=== PATIENT | female | born 1980 | race Caucasian/White ===

== ENCOUNTER 2016-12-20 03:01 | Inpatient (IN) | payer OTHER ==
--- NOTE | ~2016-12-20 | HP ---
Unit #: [id number] #: [id number] Patient: JERI CURTIS [id number] [place] [address] [id number] I MR#: [id number] NAME: JERI CURTIS. ROOM: 86 Age: 35 Sex: F Admission Date: 12/20/2016 : 1980 Attending Physician: Alli Islas M.D. Admitting Physician: Alli Islas M.D. Primary Care Physician: Primary Care Physician No HISTORY AND PHYSICAL HISTORY OF PRESENT ILLNESS Jeri is a 35 year old, admitted to [facility] because of her continued drug use. She shoots heroin. PAST MEDICAL HISTORY Long history of opioid abuse to include IV heroin. PAST SURGICAL HISTORY Bilateral thumbs. ALLERGIES No known drug allergies. SOCIAL HISTORY She smokes one pack per day, denies alcohol, admits to long history of opioid abuse to include IV heroin. FAMILY HISTORY Medically noncontributory. REVIEW OF SYSTEMS CONSTITUTIONAL: No fever or chills. HEENT: Denies any sore throat, ear pain or runny nose. CARDIOVASCULAR: Denies chest pain, irregular heart rhythm or palpitations. CHEST: Denies shortness of breath or cough. No hemoptysis. GASTROINTESTINAL: Denies nausea, vomiting, diarrhea or chronic constipation. ENDOCRINE: Denies history of increased thirst or urination. No recent significant weight loss or gain. GENITOURINARY: Denies dysuria, frequency, or hematuria. SKIN: Denies any rashes. HEMATOLOGIC: Denies history of increased bleeding or bruising. MUSCULOSKELETAL: Denies any hot, swollen joints. No generalized muscle pain. NEUROLOGIC: Denies problems with vision or speech. No frequent, severe headaches. No numbness, tingling or weakness in any extremities. Denies loss of bladder or bowel control. CURRENT MEDICATIONS 1. Detox protocol 2. Desyrel 50 mg q.h.s. p.r.n. PHYSICAL EXAMINATION Unit #: [id number] #: [id number] Patient: JERI CURTIS GENERAL: Alert, well-nourished, no apparent distress. VITAL SIGNS: Blood pressure 100/60, heart rate 80, respirations 16, temperature 98.6. WEIGHT: 119 pounds. HEIGHT: 5 feet 5 inches. SKIN: Warm and dry without rash or lesion. HEENT: Normocephalic. TMs not viewed. Oral and nasal passages clear. Conjunctivae clear. PERRLA. EOMs intact. NECK: Supple without lymphadenopathy or thyromegaly. HEART: Regular rate and rhythm without murmur. LUNGS: Clear. ABDOMEN: Soft, nontender. : Not done. EXTREMITIES: No evidence of cyanosis, clubbing or edema. Moves all without focal deficit. NEUROLOGICAL: Grossly within normal limits. Cranial Nerves: II: Visual miller are intact. III, IV AND : Extraocular movements are intact. Pupils are equal, round and reactive to light. V: Facial sensation is grossly normal. VII: Facial movements and expression are normal. VIII: Auditory acuity grossly intact. IX, X: Uvula is midline. Phonation is normal. XI: Patient shrugs shoulders and turns head normally. XII: Tongue protrudes in the midline. Sensory and Motor Function: Sensory and motor sensation is grossly normal. Motor: moves all extremities well. Coordination: Gait is normal. Deep Tendon Reflexes: Intact. IMPRESSION Psychiatric admission. RECOMMENDATIONS Psychiatric, per psychiatrist. MEDICAL I see no contraindications to participating in facility's activities. MEDICAL PROGNOSIS Good. MEDICAL CONDITION Stable. Dictated by... Andreina Skaggs, PYesicaAYesica-Yenny. for Blanca Rees/farrah TD: 12/21/2016 12:12 JOB #: [id number] Unit #: [id number] #: [id number] Patient: JERI CURTIS HISTORY AND PHYSICAL Page 1 of 1 X Andreina Skaggs HISTORY AND PHYSICAL
--- NOTE | ~2016-12-20 | DS ---
Unit #: [id number] #: [id number] Patient: JERI CURTIS [id number] [place] [address] [id number] I MR#: [id number] NAME: JERI CURTIS. ROOM: [facility] Age: 36 Sex: F Admission Date: 12/20/2016 : 1980 Discharge Date: 12/22/2016 Attending Physician: Alli Islas M.D. Primary Care Physician: Primary Care Physician No DISCHARGE SUMMARY REASON FOR ADMISSION Jeri is 34-year-old woman with a history of opioid dependence, who reported that she relapsed and had also been using amphetamines. She was unable to contract for safety with no specific suicidal ideation, intent, or plan and was admitted for detox. DIAGNOSTIC STUDIES LABORATORY RESULTS: Please see hospital chart. HOSPITAL COURSE The patient was admitted and placed on the opioid detox protocol. Trazodone was provided for insomnia. Her physical examination was unremarkable. After a brief period of inpatient detox, she requested discharge to go to a facility in [place] that her family had arranged for her. She continued to be free of suicidality and was discharged to the community. DISCHARGE DIAGNOSES AXIS I: Opioid dependence with withdrawal, uncomplicated; amphetamine abuse. AXIS II: No diagnosis. AXIS III: Opioid withdrawal, resolved. AXIS IV: AXIS V: DISCHARGE INSTRUCTIONS Follow up with chemical dependence programing in [place] as arranged by the patient's family. DISCHARGE MEDICATIONS None. CONDITION AT DISCHARGE Fair. PROGNOSIS Fair. DIET AND ACTIVITY Ad meggan. Unit #: [id number] #: [id number] Patient: JERI CURTIS Dictated by... Blanca Quesada/luis manuel TD: 03/02/2017 14:21 JOB #: [id number] DISCHARGE SUMMARY Page 1 of 1 X Alli Islas MD X DISCHARGE SUMMARY
--- NOTE | ~2016-12-20 | A ---
[facility] DATE: 12/21/16 Patient: JERI CURTIS Physician: SABRINA Address: [address] [place] Room/Bed: [address], Zip: [place] [address] Admit Date: 12/20/16 Date of : [birth year] Height: 5 5 Weight: [phone] NUTRITIONAL ASSESSMENT: REASON: NUTRITION RISK POINT- UNINTENTIONAL WEIGHT LOSS PATIENT ADMITTED FOR HEROIN AND METH DETOX PMH: LONG HX OPIOID ABUSE Anthropometrics: HT: 5'5", WT: 119#, BMI: 19.8, %IBW: 95 Labs: 12/20/16- NUTRITION LABS WNL Meds: DESYREL, DETOX PROTOCOL Assessment: PATIENT IS A 35 Y/O FEMALE ADMITTED FOR HEROIN AND METH DETOX. PATIENT IS CURRENTLY UNEMPLOYED, LIVES WITH HER , SMOKES 1 PPD, AND HAS DAILY HEROIN AND METH USE. PATIENT HAS A HX OF INPATIENT CHEMICAL DEPENDENCY TREATMENT. PATIENT STATED A GOOD APPETITE WITH A 20# WEIGHT LOSS OVER LAST SEVERAL MONTHS, AND SHE HAS NOT BEEN SLEEPING. WEIGHT HX PER MEDITECH SHOWS A 6# LOSS SINCE LAST ADMIT 1 YEAR AGO. PATIENT'S BMI IS WITHIN A HEALTHY RANGE AND SHE IS 95% OF HER IBW. THERE ARE NO SKIN OR GI ISSUES NOTED ATT. PATIENT IS ON A REGULAR DIET. THIS RD SUSPECTS WEIGHT AND APPETITE WILL STABILIZE AND POSSBILY INCREASE FOLLOWING DETOX. Dx: INADEQUATE NUTRIENT INTAKE R/T CURRENT CONDITION, DETOX AEB SELF-REPORTED WEIGHT LOSS, NUTRITION RISK POINT Intervention: REGULAR DIET, MEDS PER MD, DETOX, PSYCH Monitoring, Evaluation and Goals: 1. ADEQUATE PO INTAKES >50% OF MEALS 2. PREVENT, CORRECT MICRO/MACRO NUTRIENT DEFICIENCIES 3. MAINTAIN CURRENT WEIGHT, PREVENT FUTHER WEIGHT LOSS MONITOR: WEIGHTS, LABS, PO/FLUID INTAKES Recommendations: 1. CONTINUE REGULAR DIET TOLERATED 2. ENCOURAGE ADEQUATE PO AND FLUID INTAKES 3. OBTAIN WEIGHTS ROUTINELY (EVEYR 3-4 DAYS) 4. IF PO INTAKES FALL BELOW 50% OF MEALS PLEASE ORDER ENSURE BID TO PROMOTE ADEQUATE KCAL AND PROTEIN INTAKES [facility] DATE: 12/21/16 Patient: JERI CURTIS Physician: SABRINA Address: [address] [place] Room/Bed: [address], Zip: [place] [phone] Admit Date: 12/20/16 Date of : [birth year] Height: 5 5 Weight: [address] TO F/U PER PROTOCOL AND PRN R/T PATIENT MILDLY COMPROMISED Respectfully, MARYANA OLIVAS RD, LD Food and Nutritional Services [facility] cc: client file
--- NOTE | ~2016-12-20 | PA ---
Unit #: [id number] #: [id number] Patient: JERI CUTRIS [id number] [facility] [address] [place] [address] [id number] I MR#: [id number] NAME: JERI CURTIS. ROOM: 86 Age: 36 Sex: F Admission Date: 12/20/2016 : 1980 Date of Assessment: Attending Physician: Alli Islas M.D. Admitting Physician: Alli Islas M.D. Primary Care Physician: Primary Care Physician No PSYCHIATRIC ASSESSMENT INFORMANTS The patient, reliable; [facility], reliable. CHIEF COMPLAINT Jeri is 34-year-old woman with a history of IV heroin use, who reports that she has relapsed and been using again. She had vague suicidal ideation and could not contract for safety. She was admitted for stabilization. PAST PSYCHIATRIC HISTORY This is Jeri's second admission to our facility and she has had treatment in the [facility] as well as at the [facility]. FAMILY PSYCHIATRIC HISTORY There is a long family history of chemical dependence, depression, and anxiety. SOCIAL HISTORY The patient reports she has a history of violence within interpersonal relationships. She is a heterosexual woman, who is currently without a partner. She is living with a friend and a previous relationship. PAST MEDICAL HISTORY No chronic medical problems. MEDICATIONS None. ALLERGIES No known medication allergies. SUBSTANCE USE HISTORY The patient has abused opiates, methamphetamines, cannabis, alcohol, and hallucinogens in the past. MENTAL STATUS EXAMINATION Jeri presented mildly disheveled woman, who appeared at her stated age. Her speech was spontaneous and easily understood. Musculoskeletal examination was calm. Her mood was anxious and irritable with a congruent affect. She was alert and fully oriented. Memory and concentration were fair to good. Thought processes were goal directed with no active psychosis. She denied suicidal ideation, intent, or plan. She denied homicidal ideation. Insight and judgment were fair. Fund of knowledge Unit #: [id number] #: [id number] Patient: JERI CURTIS and abstraction were intact. ASSETS AND LIABILITIES The patient presents voluntarily for treatment and has supportive family. Liabilities include unstable housing and income. ADMITTING DIAGNOSES AXIS I: Opiate dependence with withdrawal, uncomplicated; amphetamine abuse. AXIS II: No diagnosis. AXIS III: Opioid withdrawal syndrome. AXIS IV: AXIS V: PSYCHIATRIC PLAN The patient was admitted and placed on the opioid detox protocol. Trazodone will be provided for insomnia. She will enroll in dual diagnosis groups and activities. TREATMENT GOALS Resolution of intoxication, improvement in insight, and improvement in coping skills. DISCHARGE PLANNING Follow up with chemical dependence programing of the patient's choice. ESTIMATED LENGTH OF STAY 5 days. Dictated by... Blanca QuesadaH/luis manuel TD: 03/02/2017 14:33 JOB #: [id number] PSYCHIATRIC ASSESSMENT Page 1 of 1 X Alli Islas MD X PSYCHIATRIC ASSESSMENT
[2016-12-20 09:42] LABS: BASOPHIL% 0.3 % (0-2.5); EOSINOPHIL# 0.1 X10e3 (0-0.7); EOSINOPHIL% 1.1 % (0.0-7.0); HEMATOCRIT 40.2 % (35.0-45.0); HEMOGLOBIN 13.3 gm/dL (12.0-16.0); LYMPHOCYTE# 2.5 X10e3 (1.0-3.5); LYMPHOCYTE% 21.5 % (17.0-45.0); MEAN CELL VOLUME 87.1 FL (83-96); MEAN CORPUSCULAR HEMOGLOBIN 28.7 PG (28-34); MEAN CORPUSCULAR HGB CONC 32.9 g/dL (30-36); MEAN PLATELET VOLUME 9.3 FL (6.5-11.5); MONOCYTE# 0.9 X10e3 (0-1.0); MONOCYTE% 7.4 % (3.0-12.0); NEUTROPHIL% 69.7 % (40-75); PLATELET COUNT 280 X10e3 (140-420); RED BLOOD COUNT 4.62 X10e (3.90-5.30); RED CELL DISTRIBUTION WIDTH 12.1 % (11.0-15.5); WHITE BLOOD COUNT 11.5 X10e3 (4.0-10.5)
[2016-12-20 09:45] LABS: DIFF IND NO
[2016-12-20 09:54] LABS: ALBUMIN SERUM 3.8 g/dL (3.5-5.0); BILIRUBIN,TOTAL 0.3 mg/dL (0.2-2.0); BUN/CREATININE RATIO 16.66; CALCIUM SERUM 9.3 mg/dL (8.4-10.2); CREATININE SERUM 0.6 mg/dL (0.6-1.4); GLOM FILT RATE Estimated 118.9 mL/min (>60); POTASSIUM 4.3 mmol/L (3.5-5.1); PROTEIN TOTAL SERUM 7.2 g/dL (6.0-8.3)
== END 2016-12-22 13:10 | disposition home or self-care (01) | DRG 897 ==
LOC: P1E 03:01
PROVIDERS: Psychiatry & Neurology Psychiatry
PROC: HZ2ZZZZ Detoxification Services for Substance Abuse Treatment (ICD-10-PCS; principal; 2016-12-20)
DX: F11.23 Opioid dependence with withdrawal (principal); F15.10 Other stimulant abuse, uncomplicated; F17.210 Nicotine dependence, cigarettes, uncomplicated
CPT/HCPCS: 80053; 84703; 85025; 86592

== ENCOUNTER 2017-04-19 17:00 | Inpatient (IN) | payer OTHER ==
[~2017-04-19] VITALS: Ht 165.1 cm; Wt 64.0 kg
--- NOTE | ~2017-04-19 | DS ---
Unit #: [id number] #: [id number] Patient: JERI CURTIS [id number] [place] [address] [id number] I MR#: [id number] NAME: JERI CURTIS. ROOM: [facility] Age: 36 Sex: F Admission Date: 04/19/2017 : 1980 Discharge Date: 04/21/2017 Attending Physician: Alli Islas M.D. Primary Care Physician: Primary Care Physician No DISCHARGE SUMMARY REASON FOR ADMISSION Jeri is a 36-year-old woman who came in reporting a relapse on opiates with ongoing detox symptomatology. She says that her boyfriend recently of an overdose and this caused her relapse about 2 months ago. She was admitted for opiate detox. DIAGNOSTIC STUDIES LABORATORY DATA: Beta HCG was negative. Other laboratory studies were within normal limits. HOSPITAL COURSE Patient was admitted and placed on the opiate detox protocol. Physical examination was unremarkable. She tolerated detox with no significant problems and was able to contract for safety once again on the date of discharge, having had no further suicidal ideation, intent or plan throughout the hospitalization. She also admitted the use of methamphetamines but not for about a month prior to admission. DISCHARGE DIAGNOSES AXIS I: Opiate dependence. Amphetamine abuse. AXIS II: No diagnosis. AXIS III: None acute. INSTRUCTION TO PATIENT Follow up with the [facility] intensive outpatient program. She was also referred to vocational rehab for job training and career assistance. DISCHARGE MEDICATIONS None. CONDITION ON DISCHARGE Improved. PROGNOSIS Fair to good. DIET AND ACTIVITY Per primary care doctor. Dictated by... Unit #: [id number] #: [id number] Patient: JERI CURTIS Alli Islas M.D. [facility]/pauh TD: 04/26/2017 17:19 JOB #: [id number] DISCHARGE SUMMARY Page 1 of 1 X Alli Islas MD X DISCHARGE SUMMARY
--- NOTE | ~2017-04-19 | PA ---
Unit #: [id number] #: [id number] Patient: JERI AGUAYO [id number] [facility] [address] [place] [address] [id number] I MR#: [id number] NAME: JERI AGUAYO. ROOM: [facility] Age: 36 Sex: F Admission Date: 04/19/2017 : 1980 Date of Assessment: 04/20/2017 Attending Physician: Alli Islas M.D. Admitting Physician: Alli Islas M.D. Primary Care Physician: Primary Care Physician No PSYCHIATRIC ASSESSMENT DATE OF SERVICE 04/20/2017. INFORMANTS The patient reliable; [facility] records, reliable. CHIEF COMPLAINT Relapse. HISTORY OF PRESENT ILLNESS Ms. Aguayo is a 36-year-old woman who reported that her boyfriend of a heroin overdose about 2 months ago. This caused her to become desponded and she herself relapsed on opiates and has been using consistently since then with the occasional use of methamphetamines. She was admitted for stabilization. PAST PSYCHIATRIC HISTORY This is her third admission to this facility and she has been treated in the [facility] as well as at the [facility] locally. FAMILY PSYCHIATRIC HISTORY There is a long family history of chemical dependence, depression, and anxiety. SOCIAL HISTORY The patient reports that she has a history of violence within interpersonal relationships. Her partner recently of an overdose and she is currently living with a friend. PAST MEDICAL HISTORY No chronic medical problems. MEDICATIONS None currently. ALLERGIES No known medication allergies. SUBSTANCE USE HISTORY As noted, the patient has been using opioids with occasional amphetamines. She also has a history of abusing alcohol, cannabis, and hallucinogens. MENTAL STATUS EXAMINATION Unit #: [id number] #: [id number] Patient: JERI AGUAYO presented as a mildly disheveled woman who appeared her stated age. She was cooperative with the examination. Her speech was spontaneous and easily understood. Her musculoskeletal examination was calm. Her mood was mildly anxious with a congruent affect. She was alert and fully oriented. Her memory and concentration were fair to good. Her thought processes were goal directed with no active psychosis. She denied suicidal ideation, intent, or plan. Insight and judgment, fair. Fund of knowledge and abstraction, fair. ASSETS AND LIABILITIES Assets; the patient knows local resources and presents voluntarily for treatment. Liabilities include bereavement, unstable housing, and recent relapse. ADMITTING DIAGNOSES AXIS I: Opioid dependence with withdrawal, uncomplicated; F11.23. AXIS II: No diagnosis. AXIS III: None acute. AXIS IV: AXIS V: PSYCHIATRIC PLAN The patient was admitted and placed on the opioid detox protocol. She will enroll in dual diagnosis groups and activities, and physical examination and laboratory studies will be ordered and reviewed. TREATMENT GOALS Establishment of sobriety, improvement in insight, and improvement in coping skills. DISCHARGE PLANNING Follow up with IOP. ESTIMATED LENGTH OF STAY 5 days. Dictated by... Alli Islas M.D. JOSELO/luis manuel TD: 04/26/2017 15:57 JOB #: [id number] PSYCHIATRIC ASSESSMENT Page 1 of 1 X Alli Islas MD X PSYCHIATRIC ASSESSMENT
--- NOTE | ~2017-04-19 | HP ---
Unit #: [id number] #: [id number] Patient: JERI CURTIS [id number] [place] [address] [id number] I MR#: [id number] NAME: JERI CURTIS. ROOM: P212 Age: 36 Sex: F Admission Date: 04/19/2017 : 1980 Attending Physician: Alli Islas M.D. Admitting Physician: Alli Islas M.D. Primary Care Physician: Primary Care Physician No HISTORY AND PHYSICAL HISTORY OF PRESENT ILLNESS Jeri is a 36 year old admitted to [address] [place] [address] because of her drug use. She shoots heroin. PAST MEDICAL HISTORY Long history of opioid abuse to include IV heroin. PAST SURGICAL HISTORY Bilateral thumbs. ALLERGIES Iodine. SOCIAL HISTORY Smokes 1 pack per day. Denies alcohol. Admits to a long history of illicit substance abuse to include IV heroin. FAMILY HISTORY Medically noncontributory. REVIEW OF SYSTEMS CONSTITUTIONAL: No fever or chills. HEENT: Denies any sore throat, ear pain or runny nose. CARDIOVASCULAR: Denies chest pain, irregular heart rhythm or palpitations. CHEST: Denies shortness of breath or cough. No hemoptysis. GASTROINTESTINAL: Denies nausea, vomiting, diarrhea or chronic constipation. ENDOCRINE: Denies history of increased thirst or urination. No recent significant weight loss or gain. GENITOURINARY: Denies dysuria, frequency, or hematuria. SKIN: Denies any rashes. HEMATOLOGIC: Denies history of increased bleeding or bruising. MUSCULOSKELETAL: Denies any hot, swollen joints. No generalized muscle pain. NEUROLOGIC: Denies problems with vision or speech. No frequent, severe headaches. No numbness, tingling or weakness in any extremities. Denies loss of bladder or bowel control. CURRENT MEDICATIONS Detox protocol. PHYSICAL EXAMINATION GENERAL: Alert, well-nourished, in no apparent distress. Unit #: [id number] #: [id number] Patient: JERI CURTIS VITAL SIGNS: Blood pressure 126/66, heart rate 80, respirations 16, temperature 98.6. WEIGHT: 141. HEIGHT: 5 feet 5 inches. SKIN: Warm and dry without rash or lesion. HEENT: Normocephalic. TMs not viewed. Oral and nasal passages clear. Conjunctivae clear. PERRLA. EOMs intact. NECK: Supple without lymphadenopathy or thyromegaly. HEART: Regular rate and rhythm without murmur. LUNGS: Clear. ABDOMEN: Soft, nontender. : Not done. EXTREMITIES: No evidence of cyanosis, clubbing or edema. Moves all without focal deficit. NEUROLOGICAL: Grossly within normal limits. Cranial Nerves: II: Visual miller are intact. III, IV AND : Extraocular movements are intact. Pupils are equal, round and reactive to light. V: Facial sensation is grossly normal. VII: Facial movements and expression are normal. VIII: Auditory acuity grossly intact. IX, X: Uvula is midline. Phonation is normal. XI: Patient shrugs shoulders and turns head normally. XII: Tongue protrudes in the midline. Sensory and Motor Function: Sensory and motor sensation is grossly normal. Motor: moves all extremities well. Coordination: Gait is normal. Deep Tendon Reflexes: Intact. IMPRESSION Psychiatric admission. RECOMMENDATIONS PSYCHIATRIC: Per psychiatrist. MEDICAL: See no contraindication to participate in facility's activities. MEDICAL PROGNOSIS Good. MEDICAL CONDITION Stable. Dictated by... Andreina Skaggs P.A.-C. for Blanca Rees/aleksey TD: 04/20/2017 16:41 JOB #: [id number] Unit #: [id number] #: [id number] Patient: JERI CURTIS HISTORY AND PHYSICAL Page 1 of 1 X Andreina Skaggs HISTORY AND PHYSICAL
[2017-04-20 09:47] LABS: BASOPHIL# 0.1 X10e3 (0-0.3); BASOPHIL% 0.6 % (0-2.5); EOSINOPHIL# 0.4 X10e3 (0-0.7); EOSINOPHIL% 4.1 % (0.0-7.0); LYMPHOCYTE# 2.7 X10e3 (1.0-3.5); LYMPHOCYTE% 29.5 % (17.0-45.0); MEAN CORPUSCULAR HEMOGLOBIN 29.3 PG (28-34); MEAN CORPUSCULAR HGB CONC 34.1 g/dL (30-36); MEAN PLATELET VOLUME 9.4 FL (6.5-11.5); MONOCYTE# 0.5 X10e3 (0-1.0); MONOCYTE% 5.8 % (3.0-12.0); NEUTROPHIL# 5.4 X10e3 (1.5-7.1); PLATELET COUNT 295 X10e3 (140-420); RED BLOOD COUNT 5.11 X10e (3.90-5.30); RED CELL DISTRIBUTION WIDTH 13.2 % (11.0-15.5); WHITE BLOOD COUNT 9.1 X10e3 (4.0-10.5)
[2017-04-20 09:48] LABS: DIFF IND NO
[2017-04-20 10:24] LABS: ALBUMIN SERUM 3.7 g/dL (3.5-5.0); BILIRUBIN,TOTAL 0.5 mg/dL (0.2-2.0); BUN/CREATININE RATIO 11.11; CALCIUM SERUM 9.3 mg/dL (8.4-10.2); CREATININE SERUM 0.9 mg/dL (0.6-1.4); GLOM FILT RATE Estimated 82.9 mL/min (>60); POTASSIUM 4.8 mmol/L (3.5-5.1); PROTEIN TOTAL SERUM 6.9 g/dL (6.0-8.3)
[2017-04-21 10:04] LABS: URINE APPEARANCE CLEAR; URINE BILIRUBIN NEG (NEG); URINE BLOOD NEG (NEG); URINE COLOR YELLOW; URINE GLUCOSE NEG (NEG); URINE KETONE NEG (NEG); URINE LEUKOCYTE ESTERASE NEG (NEG); URINE NITRATE NEG (NEG); URINE PH 7.5 (5-8); URINE PROTEIN NEG (NEG); URINE SPECIFIC GRAVITY 1.011 (1.003-1.035); URINE UROBILINOGEN 0.2 MG/DL (NEG)
[2017-04-21 10:06] LABS: AMPHETAMINE NEG (NEG); BARBITURATES NEG (NEG); BENZODIAZEPINES NEG (NEG); COCAINE NEG (NEG); MARIJUANA NEG (NEG); OPIATES POS (NEG); TRICYCLIC ANTIDEPRESSANTS NEG (NEG); U METHADONE NEG (NEG)
== END 2017-04-21 12:35 | disposition home or self-care (01) | DRG 897 ==
LOC: P2S 20:53
PROVIDERS: Psychiatry & Neurology Psychiatry
PROC: HZ2ZZZZ Detoxification Services for Substance Abuse Treatment (ICD-10-PCS; principal; 2017-04-19)
DX: F11.23 Opioid dependence with withdrawal (principal); F15.10 Other stimulant abuse, uncomplicated; F17.210 Nicotine dependence, cigarettes, uncomplicated; Z91.041 Radiographic dye allergy status
CPT/HCPCS: 80053; 80307; 81003; 84703; 85025; 86592